=== PATIENT | male | born 1965 | race Caucasian/White ===

== ENCOUNTER 2018-05-02 09:57 | Day surgery (SDC) | payer OTHER, SELFPAY ==
--- NOTE | 2018-05-02 | PATH_ITS ---
[facility] Accession Number: [id number] . 01 Material submitted: . POLYP AT 50 . 02 Diagnosis: Current surveillance guidelines recommend that a sessile serrated adenoma with cytological dysplasia should be treated similar to an advanced adenoma. Complete polypectomy and shortened surveillance interval are recommended. MRV/05/03/2018 . 02 Electronically signed: . Leslie Durbin MD, Pathologist NPI- [id number] . 01 Gross description: . Received one formalin-filled container labeled with the patient's name and labeled polyp at 50. The specimen consists of multiple less than 0.1 to 0.4 cm portions of tissue. Filtered, wrapped and entirely submitted in one cassette. ([facility]:[id number]) /[facility] . 02 Microscopic: . Colon, Polyp at 50 cm, Biopsy: Sessile serrated adenoma with cytological dysplasia. Please see comment. No evidence of malignancy or high-grade dysplasia. . 02 Pathologist provided ICD-10: D12.6 . 02 CPT . 209260 Specimen Comment: A duplicate report has been generated due to demographic updates. Performed at: 01 [facility] [address] [place] [address], [place], [place] [id number] MD Neptali Boyer MD Phone: [phone] Performed at: 02 [facility] [address] [place], [place] [id number] MD George Suráez MD Phone: [phone]
[2018-05-02 10:35] VITALS: BP 140/77; PULSE 55; RESP 18; TEMP 36.4; O2SAT 98; BMI 31.1
[2018-05-02] MEDS: SODIUM CHLORIDE 0.9% 1,000 ML 200 ML IV (10:45)
[2018-05-02] MEDS: MIDAZOLAM 5 MG/5 ML VIAL IV (12:10)
[2018-05-02] MEDS: fentaNYL 250 MCG/5 ML INJ IV (12:11)
[2018-05-02 12:24] VITALS: BP 97/64; PULSE 47; RESP 10; TEMP 36.6; O2SAT 96
--- NOTE | 2018-05-02 12:27 | P.OP_ITS ---
Operative Date/Time/Diagnoses Date of procedure: 05/02/18 Time of procedure: 12:22 Pre-op diagnosis: Screening Post-op diagnosis: same Procedure & Clinicians Procedure: Colonoscopy to the cecum with polypectomy Same procedure as scheduled: Yes Indications: No prior colonoscopy Surgeon: Carina English Click Yes if Unassisted: Yes Anesthesia Type: Sedation (Versed 8 mg; fentanyl 250 mcg) Operative Notes Findings: 1. Adequate prep 2. Carpet like lesion approximately 2 x 1 cm at 50 cm from the anal verge. Removed with cold forceps and submitted for pathology. The site was marked with Alisha ink. 3. Sigmoid diverticulosis without evidence of inflammation 4. Grade 1 internal hemorrhoids 5. No AV malformations identified Closure Type: not applicable Estimated Blood Loss (mL): 2 Procedure in detail: After obtaining informed consent, the patient was brought to the GI suite and placed in the left lateral decubitus position on the examination table. After placement of appropriate monitors, the patient was given incremental doses of Versed and Fentanyl until an appropriate level of sedation was achieved. A time out was held per SCOAP protocol. A digital rectal examination was performed and did not reveal any masses or obstructing lesions. The colonoscope was gently passed into the patient's anus and the entire colon navigated to the level of the cecum with minimal difficulty. Once in the cecum, the scope was withdrawn being sure to go before and beyond all mucosal folds and prominences and get an excellent examination. At 50 cm from the anal verge, we encountered a 2 x 1 cm flat polypoid lesion. It was carpet like and tracked along a a mucosal fold occupying approximately 25 % of the diameter of the lumen. The lesion was removed in a piecemeal fashion with cold forceps and the entire thing submitted for pathology. The area of the lesion was marked proximally and distally with Alisha ink. Other findings are noted above. At the level of the rectal vault, the scope was retroflexed and the internal anal canal was examined. The scope was straightened and air aspirated from the colon. The instrument was removed from the patient's body and the procedure was concluded. The patient was allowed to awaken from sedation without difficulty and taken to the post-anesthesia care unit in good condition. Total sedation time 33 min Total withdrawal time 19 min and 14 sec Complications: none Condition: stable Disposition: PACU Plan for aftercare: 1. Discharge to home 2. Plan for next colonoscopy in 6 months to evaluate the marked site for regrowth. 3. We will contact you with pathology results and any further recommendations.
[2018-05-02 12:29] VITALS: BP 88/54; PULSE 49; RESP 16; O2SAT 96
[2018-05-02 12:36] VITALS: BP 100/65; PULSE 51; RESP 18; O2SAT 98
[2018-05-02 12:40] VITALS: BP 101/60; PULSE 47; RESP 16; TEMP 36.3; O2SAT 98
[2018-05-02 12:52] VITALS: BP 112/67; PULSE 48; RESP 18; TEMP 36.6; O2SAT 98
--- NOTE | 2018-05-02 13:18 | SUR.PHASEII ---
Dr. Candelario wanted copy of operative note given to pt. Operative note given to pt and d/c instructions given to pt and pt's friend. Pt d/shan with friend in wheelchair.
--- NOTE | 2018-05-17 00:40 | PM.HP.1 ---
History of Present Illness Date Patient Seen: 05/02/18 Time Patient Seen: 11:41 Chief complaint: [id number] SCREENING COLONOSCOPY Narrative: Tan is a pleasant 52-year-old gentleman who presents for his 1st screening colonoscopy. He denies any problems or symptoms related to the function of his GI tract. He reports he needs a colonoscopy as part of health maintenance program. Patient History Family & Social History Family History: Reviewed 05/17/18 by Carina English MD Social History: household members spouse Meds Home Medications Medication Instructions Recorded Confirmed Type No Known Home Medications 05/02/18 05/02/18 History Allergies Allergy/AdvReac Type Severity Reaction Status Date / Time No Known Drug Allergies Allergy Verified 05/02/18 10:43 Review of Systems Review of Systems All systems reviewed & are unremarkable except as noted in HPI and below Exam Vital Signs (past 8 hours): Oxygen Delivery Method Room Air Narrative Exam Narrative: Well-nourished and well-developed gentleman in no distress HEENT: Normocephalic and atraumatic, pupils equal round reactive to light accommodation with anicteric sclera Lungs: Clear to auscultation bilaterally Heart: Regular rate and rhythm Abdomen: Soft, nontender, active bowel sounds Extremities: Warm and well perfused and without edema Assessment & Plan Plan: Assessment/Plan Narrative: Pleasant and healthy man here for his 1st screening colonoscopy. We discussed risks and benefits of the procedure the patient expressed a desire to complete it today.
== END 2018-05-02 13:13 | disposition home or self-care (01) ==
PROVIDERS: PCP Family Medicine Geriatric Medicine; Visit Provider Surgery
PROC: 0DJD8ZZ Inspection of Lower Intestinal Tract, Via Natural or Artificial Opening Endoscopic (ICD-10-PCS; CPT 45378; principal; 2018-05-02 11:45)
DX: Z12.11 Encounter for screening for malignant neoplasm of colon (principal); K57.30 Diverticulosis of large intestine without perforation or abscess without bleeding; K64.0 First degree hemorrhoids; D12.6 Benign neoplasm of colon, unspecified
CPT/HCPCS: 45381; 45380; 99152; 99153; J2250; J3010

== ENCOUNTER 2018-12-20 10:00 | Day surgery (SDC) | payer OTHER, SELFPAY ==
--- NOTE | 2018-12-20 | PATH_ITS ---
[facility] Accession Number: [id number] . 01 Material submitted: . colon - COLON 50CM . 01 Clinical history: . POSSIBLE COLON RECURRENT SESILE ADENOMA 50CM . 02 Diagnosis: Colon, 50 cm, Biopsy: Sessile serrated adenoma. [facility]/12/23/2018 . 02 Electronically signed: . Leslie Durbin MD, Pathologist NPI- [id number] . 01 Gross description: . COLON 50CM: Received in formalin are multiple fragment(s) of dey, soft tissue measuring 0.1 x 0.1 x 0.1 cm to 0.3 x 0.2 x 0.2 cm which is entirely submitted and submitted entirely in 1 cassette(s) /[facility] /[facility] . 02 Pathologist provided ICD-10: D12.6 . 02 CPT . 904631 Performed at: 01 [facility] [address] [facility], [place], [place] [id number] MD Neptali Boyer MD Phone: [phone] Performed at: 02 [facility] [address] [place], [place] [id number] MD Leslie Durbin MD Phone: [phone]
[2018-12-20 10:32] VITALS: BP 119/73; PULSE 53; RESP 16; TEMP 36.3; O2SAT 96; BMI 31.1
[2018-12-20] MEDS: SODIUM CHLORIDE 0.9% 1,000 ML 200 ML IV (10:50)
--- NOTE | 2018-12-20 11:57 | PM.HP.1 ---
History of Present Illness Date Patient Seen: 12/20/18 Time Patient Seen: 11:57 Chief complaint: [id number] SCREENING COLONOSCOPY Narrative: Patient is a gentleman who had a colonoscopy last year. He was found to have a sessile serrated adenoma and is here for follow-up to make sure the lesion was completely removed. It was located 50 cm apparently was marked. No family history of colon cancer. There was dysplasia in the biopsy specimen. Patient History Medical History Sessile colonic polyp (Resolved) Social History household members: spouse Family & Social History Social History: household members spouse Meds Home Medications Medication Instructions Recorded Confirmed Type No Known Home Medications 05/02/18 05/02/18 History Allergies Allergy/AdvReac Type Severity Reaction Status Date / Time No Known Drug Allergies Allergy Verified 05/02/18 10:43 Review of Systems Review of Systems All systems reviewed & are unremarkable except as noted in HPI and below Exam Vital Signs (past 8 hours): - 12/20/18 10:32 Temperature 97.3 F L Pulse Rate 53 L Respiratory Rate 16 Blood Pressure 119/73 Pulse Oximetry 96 Oxygen Delivery Method Room Air Narrative Exam Narrative: Pleasant cooperative patient no apparent distress. Lungs are clear to auscultation. No rales or rhonchi. Heart regular rate and rhythm no murmur gallop. Abdomen is soft nontender without mass. No obvious hernias. Patient is alert and oriented x3. Assessment & Plan Assessment & Plan narrative: The patient for a screening colonoscopy. I have discussed the procedure with them. Risks of bleeding, perforation which would necessitate major operation, failure to find remove all lesions, the potential tattoo were all discussed. All questions were answered. They wished to proceed.
--- NOTE | 2018-12-20 11:59 | PM.PREOP ---
Pre-operative Note Interval Note History & Physical reviewed/Exam performed by Physician: Yes Changes to H&P: No ASA Class (for procedural sedation): I
[2018-12-20] MEDS: MIDAZOLAM 5 MG/5 ML VIAL IV (12:19)
[2018-12-20] MEDS: fentaNYL 250 MCG/5 ML INJ IV (12:20)
--- NOTE | 2018-12-20 12:38 | PM.OP.ENDO ---
Operative Date/Time/Diagnoses Date of procedure: 12/20/18 Time of procedure: 12:38 Post-op diagnosis: same (Suspected recurrence or regrowth at the initial site.) Procedure & Clinicians Study performed: Colonoscopy with cold biopsy Same procedure as scheduled: Yes Indications: History of a sessile serrated adenoma with this Latanya a removed 6 months ago and tattoo. Brought back to make sure there is no recurrence or regrowth. Procedure Notes SCOAP/Timeout: Performed Procedure in detail: The patient was placed in the left lateral decubitus position and underwent IV sedation directed by the surgeon consisting of fentanyl and Versed. Digital exam was remarkable for a very tight sphincter. Prostate is normal in size.. The scope was inserted and advanced through the rectum into the sigmoid, descending, transverse, and ascending colon. No lesions were seen. The cecum was reached identified by the ileocecal valve and the appendiceal opening. The ileocecal valve was[] cannulated. The terminal ileum was normal in appearance. The scope was gradually brought out. The prior biopsy site was identified at about 15 cm. It had been tattooed both just beyond and just distal to the lesion apparently. There was some nodularity in the area which I biopsied. It appeared to be completely removed with repeated application of large biopsy forceps. The scope was gradually brought out from there. The scope ultimately was retroflexed in the rectum. The appearance was normal. The scope was removed and the patient tolerated the procedure well. The prep was very good. Scope withdrawal time: 8 minutes Sedation minutes: 32 Findings: polyp (Probable recurrence of a sessile serrated adenoma) Specimen(s): other (Lesion at 50 cm) Complications: none Recommendations: Other recommendation (Colonoscopy in 6 months to confirm no regrowth and complete removal.) Follow up: months (Six) Disposition: PACU
[2018-12-20 12:42] VITALS: BP 96/66; PULSE 56; RESP 12; TEMP 36.8; O2SAT 94
[2018-12-20 12:51] VITALS: BP 116/74; PULSE 57; RESP 19; O2SAT 95
== END 2018-12-20 13:26 | disposition home or self-care (01) ==
PROVIDERS: PCP Family Medicine Geriatric Medicine; Visit Provider Specialist
PROC: 0DJD8ZZ Inspection of Lower Intestinal Tract, Via Natural or Artificial Opening Endoscopic (ICD-10-PCS; CPT 45378; principal; 2018-12-20 11:45)
DX: Z86.010 Personal history of colon polyps (principal); D12.6 Benign neoplasm of colon, unspecified
CPT/HCPCS: 45380; 99152; 99153; J2250; J3010

== ENCOUNTER 2019-06-17 08:26 | Day surgery (SDC) | payer OTHER, SELFPAY ==
[2019-06-17] VITALS (7 sets, daily range): BP systolic 115–138; BP diastolic 78–92; PULSE 56–85; RESP 14–17; TEMP 36.1–36.7; O2SAT 95–98
--- NOTE | 2019-06-17 | PATH_ITS ---
[facility] Accession Number: [id number] . 01 Material submitted: . PART A: colon - LESION AT 50 CM PART B: colon - POLYP AT 50 CM . 01 Clinical history: . HISTORY OF SERRATED ADENOMA . 02 Diagnosis: A. Colon Lesion at 50 cm, Biopsy: Serrated lesion with extensive cautery artifact, cannot exclude sessile serrated adenoma. Additional step sections examined. . B. Colon at 50 cm, Polyp: Colonic mucosa with prominent benign lymphoid aggregate. Negative for serrated lesion, dysplasia or malignancy. Additional step sections examined. MRV 06/20/2019 1543 Local . 02 Electronically signed: . Chucky Giron MD, PhD, Pathologist NPI- [id number] . 01 Gross description: . Part A: LESION AT 50 CM: Received in formalin are multiple fragment of dey friable tissue measuring 0.3 x 0.3 x 0.1 cm in aggregate. Specimen is submitted in its entirety in 1 cassette. Part B: POLYP AT 50 CM: Received in formalin is 1 fragment(s) of dey, soft tissue measuring 0.2 x 0.2 x 0.2 cm submitted entirely in 1 cassette(s) /[facility] 06/17/2019 1923 Local . 02 Pathologist provided ICD-10: D12.6, K63.5 . 02 CPT . 412261, 493240 Performed at: 01 [facility] [address] [facility], [place], [place] [id number] MD Neptali Boyer MD Phone: [phone] Performed at: 02 [facility] [address] [place], [place] [id number] MD Leslie Durbin MD Phone: [phone]
[2019-06-17] MEDS: SODIUM CHLORIDE 0.9% 1,000 ML 200 ML IV (09:08)
--- NOTE | 2019-06-17 10:03 | PM.HP.1 ---
History of Present Illness History of Present Illness Date Patient Seen: 06/17/19 Time Patient Seen: 10:03 Chief complaint: [id number] Narrative: The patient is a gentleman with a serrated adenoma at 50 cm. Is a flat lesion in ease brought back to make sure that it has been completely removed. He has had 2 subsequent exams. It is a flat lesion in difficult to determine if it is completely gone. Patient History Medical History Sessile colonic polyp (Resolved) Family & Social History Social History: household members spouse Meds Home Medications and Allergies Home Medications Medication Instructions Recorded Confirmed Type No Known Home Medications 05/02/18 06/17/19 History Allergies Allergy/AdvReac Type Severity Reaction Status Date / Time No Known Drug Allergies Allergy Verified 06/17/19 08:54 Review of Systems Review of Systems ROS Unobtainable: All systems reviewed & are unremarkable except as noted in HPI and below Exam Vital Signs (past 8 hours): - 06/17/19 09:02 Temperature 98.0 F Pulse Rate 56 L Respiratory Rate 17 Blood Pressure 126/79 Pulse Oximetry 97 Oxygen Delivery Method Room Air Narrative Exam Narrative: Pleasant cooperative patient no apparent distress. Lungs are clear to auscultation. No rales or rhonchi. Heart regular rate and rhythm no murmur gallop. Abdomen is soft nontender without mass. No obvious hernias. Patient is alert and oriented x3. Assessment & Plan Assessment & Plan narrative: The patient for a scope to the level of the polyp at 50 cm. It has been tattooed.. I have discussed the procedure with them. Risks of bleeding, perforation which would necessitate major operation, failure to find remove all lesion. All questions were answered. They wished to proceed.
--- NOTE | 2019-06-17 10:05 | PM.PREOP ---
Pre-operative Note Interval Note History & Physical reviewed/Exam performed by Physician: Yes Changes to H&P: No ASA Class (for procedural sedation): I
[2019-06-17] MEDS: fentaNYL 250 MCG/5 ML INJ IV (10:12)
[2019-06-17] MEDS: MIDAZOLAM 5 MG/5 ML VIAL IV (10:14)
--- NOTE | 2019-06-17 10:36 | PM.OP.ENDO ---
Operative Date/Time/Diagnoses Date of procedure: 06/17/19 Time of procedure: 10:36 Pre-op diagnosis: History sessile serrated adenoma at 50 cm. Patient brought back to confirm complete removal Post-op diagnosis: same (Small residual polyp in the area.) Procedure & Clinicians Study performed: Flexible sigmoidoscopy with hot snare polypectomy, cold biopsy and cauterization of the base of the lesion Same procedure as scheduled: Yes Indications: Determine if any regrowth has occurred in a sessile serrated adenoma Surgeon: Ector Manley Procedure Notes SCOAP/Timeout: Performed Procedure in detail: Patient was placed in left lateral decubitus position underwent IV sedation directed by the surgeon consisting of fentanyl and Versed. Digital exam was unremarkable. I did not feel is prostate. Scope was inserted advanced through the rectum into the sigmoid descending and transverse colon. At 100 cm I gradually brought the scope back. At the was I located the area of tattooing and the area between the 2 tattoos which were quite close together. There was evidence of scar from prior biopsy but there was also a small raised lesion. I injected methylene blue attempting to raise the lesions so I could better snare it the lesion did not raise. It was probably scarred down from the prior hot snare polypectomies performed. In any event I used a snare and removed pieces and then cauterized the remaining area extensively going well beyond the lesion. Just distal to this was a small polypoid lesion which I biopsied with cold biopsy forceps and placed in separate container. Sigmoid diverticulosis was noted. I withdrew the scope slowly no other lesions were seen. The patient was noted to have hemorrhoids in the rectum. Scope withdrawal time: Not applicable Sedation minutes: 24 Findings: polyp (Two separate lesions near 50 cm from the anal verge) Specimen(s): other (Two separate containers from the polyp removals) Complications: none Post-procedure Recommendations: Colonscopy in 1 year and Other recommendation Follow up: as needed Disposition: PACU
--- NOTE | 2019-06-17 11:15 | SUR.PHASEII ---
pt arrived to phase II via stretcher. pt sitting up and drinking coffee. Abd soft, pt denies any pain/discomfort. bed in lowest position and call light given to pt.
== END 2019-06-17 12:10 | disposition home or self-care (01) ==
PROVIDERS: PCP Family Medicine Geriatric Medicine; Visit Provider Specialist
PROC: 0DJD8ZZ Inspection of Lower Intestinal Tract, Via Natural or Artificial Opening Endoscopic (ICD-10-PCS; CPT 45378; principal; 2019-06-17 09:45)
DX: D12.6 Benign neoplasm of colon, unspecified (principal); K64.8 Other hemorrhoids; K57.30 Diverticulosis of large intestine without perforation or abscess without bleeding; K63.5 Polyp of colon
CPT/HCPCS: 45338; 45335; 45331; 99152; J2250; J3010

== ENCOUNTER → 2020-06-07 09:54 | Outpatient (CLI) | payer OTHER, SELFPAY ==
[2020-06-07 10:51] LABS: COVID19 -Nasal RAPID Negative (Negative)
== END ==
PROVIDERS: PCP Family Medicine Geriatric Medicine; Visit Provider Specialist
DX: Z11.59 Encounter for screening for other viral diseases (principal); Z12.11 Encounter for screening for malignant neoplasm of colon
CPT/HCPCS: 87635; C9803

== ENCOUNTER 2020-06-08 08:32 | Day surgery (SDC) | payer OTHER, SELFPAY ==
--- NOTE | 2020-06-08 | PATH_ITS ---
[facility] Accession Number: [id number] . 01 Material submitted: . colon - COLON POLYP @ 85CM . 02 Diagnosis: Colon, Polyp At 85 CM, Biopsy: Tubular adenoma. I 06/11/2020 1342 Local . 02 Electronically signed: . Leslie Durbin MD, Pathologist NPI- [id number] . 01 Gross description: . COLON POLYP @ 85CM: Received in formalin is 1 fragment(s) of dey, soft tissue measuring 0.5 x 0.3 x 0.3 cm submitted entirely in 1 cassette(s) /[facility] 06/09/2020 0855 Local . 02 Pathologist provided ICD-10: D12.6 . 02 CPT . 659060 Performed at: 01 [facility] [address], [place], [place] [id number] MD Neptali Boyer MD Phone: [phone] Performed at: 02 [facility] [place] [address] [place], [place] [id number] MD Leslie Durbin MD Phone: [phone]
[2020-06-08 09:53] VITALS: BP 128/82; PULSE 51; RESP 16; TEMP 36.4; O2SAT 98; BMI 31.0
[2020-06-08] MEDS: LACTATED RINGERS 1,000 ML 42 ML IV (10:05)
--- NOTE | 2020-06-08 11:34 | PM.HP.1 ---
History of Present Illness History of Present Illness Date Patient Seen: 06/08/20 Time Patient Seen: 11:34 Chief complaint: DX COLONOSCOPY Narrative: The patient is a gentleman who had a flat sessile serrated adenoma removed at 50 cm from the anal verge. He was brought back a year ago and there was still a serrated lesion in the region. Was much smaller than described on the initial colonoscopy. He is brought back again a year later to make sure nothing has grown back in that area. Will plan to do a complete colonoscopy if this area is clear. Patient History Medical History Sessile colonic polyp Family & Social History Social History: household members spouse Tobacco & Substance use: Smoking Status Never smoker alcohol intake current alcohol intake frequency holiday/special occasion Substance Use Type does not use Meds Home Medications and Allergies Home Medications Medication Instructions Recorded Confirmed Type No Known Home Medications 05/02/18 06/08/20 History Allergies Allergy/AdvReac Type Severity Reaction Status Date / Time No Known Drug Allergies Allergy Verified 06/17/19 08:54 Review of Systems Review of Systems ROS: Yes All systems reviewed with the patient and are negative except as otherwise documented Exam Vital Signs (past 8 hours): - 06/08/20 09:53 Temperature 97.5 F L Pulse Rate 51 L Respiratory Rate 16 Blood Pressure 128/82 Pulse Oximetry 98 Oxygen Delivery Method Room Air Narrative Exam Narrative: Pleasant cooperative patient no apparent distress. Lungs are clear to auscultation. No rales or rhonchi. Heart regular rate and rhythm no murmur gallop. Abdomen is soft nontender without mass. No obvious hernias. Patient is alert and oriented x3. Assessment & Plan Assessment & Plan narrative: The patient for a flex sig/colonoscopy. I have discussed the procedure with them. Risks of bleeding, perforation which would necessitate major operation, failure to find remove all lesions, the potential tattoo were all discussed. All questions were answered. They wished to proceed.
--- NOTE | 2020-06-08 11:36 | PM.PREOP ---
Pre-operative Note COVID-19 COVID-19 status: Negative Result date/Date tested (Pos, Neg/Pending): 06/05/20 Interval Note History & Physical reviewed/Exam performed by Physician: Yes Changes to H&P: No ASA Class (for procedural sedation): I
[2020-06-08] MEDS: MIDAZOLAM 5 MG/5 ML VIAL IV (12:28)
[2020-06-08] MEDS: fentaNYL 250 MCG/5 ML INJ IV (12:28)
--- NOTE | 2020-06-08 12:48 | PM.OP.ENDO ---
Operative Date/Time/Diagnoses Date of procedure: 06/08/20 Time of procedure: 12:48 Pre-op diagnosis: History of recurrence at high risk polyp at 50 cm from the anal verge. Post-op diagnosis: same (No residual polyp found. One small polyp found at about 85 cm from the anal verge.) Procedure & Clinicians Study performed: Colonoscopy with cold biopsy Same procedure as scheduled: Yes Indications: Surveillance of a high risk polyp. Surgeon: Ector Manley Procedure Notes SCOAP/Timeout: Performed Procedure in detail: The patient was placed in the left lateral decubitus position and underwent IV sedation directed by the surgeon consisting of fentanyl and Versed. Digital exam was unremarkable. His prostate is normal size without a mass.. The scope was inserted and advanced through the rectum into the sigmoid, descending, transverse, and ascending colon. The patient was noted to have sigmoid diverticulosis. A Small polyp was found on the way in at about 85 cm from the anal verge and this was biopsied and removed.. The cecum was reached identified by the ileocecal valve and the appendiceal opening. The scope was gradually brought out. The area of tattooing was carefully examined. The mucosa looked normal in the area where the polyp had been marked with tattooing. No other Polyps were found(only the small lesion at 85 cm). The scope ultimately was retroflexed in the rectum. The appearance was normal except some mild hemorrhoids.. The scope was removed and the patient tolerated the procedure well. Prep was very good. Scope withdrawal time: Almost 10 minutes Sedation minutes: 24 Findings: diverticulosis (Sigmoid colon), internal hemorrhoids (Small) and polyp (At 85 cm from the anal verge) Post-procedure Recommendations: Colonscopy in 3 years Follow up: as needed Disposition: PACU
[2020-06-08 12:51] VITALS: BP 139/90; PULSE 72; RESP 12; TEMP 37.4; O2SAT 97
[2020-06-08 12:56] VITALS: BP 151/106; PULSE 75; RESP 15; TEMP 37.2; O2SAT 95
[2020-06-08 13:01] VITALS: BP 146/97; PULSE 64; RESP 14; TEMP 36.6; O2SAT 97
[2020-06-08 13:14] VITALS: BP 142/78; PULSE 59; RESP 17; TEMP 36.2; O2SAT 97
== END 2020-06-08 13:20 | disposition home or self-care (01) ==
PROVIDERS: Referring Provider Specialist; Visit Provider Specialist
PROC: 0DJD8ZZ Inspection of Lower Intestinal Tract, Via Natural or Artificial Opening Endoscopic (ICD-10-PCS; CPT 45378; principal; 2020-06-08 10:45)
DX: Z12.11 Encounter for screening for malignant neoplasm of colon (principal); Z86.010 Personal history of colon polyps; K57.30 Diverticulosis of large intestine without perforation or abscess without bleeding; K64.8 Other hemorrhoids; D12.6 Benign neoplasm of colon, unspecified
CPT/HCPCS: 45380; 99152; 99153; J2250; J3010